=== PATIENT | female | born 1995 | race Two or more races ===

== ENCOUNTER 2023-04-16 19:20 | Emergency (ER) | payer OTHER ==
[~2023-04-16] VITALS: Ht 175.3 cm; Wt 53.5 kg
== END 2023-04-16 21:53 | disposition home or self-care (01) ==
LOC: ER 19:20
DX: U07.1 COVID-19 (principal)

== ENCOUNTER 2024-09-22 16:49 | Emergency (ER) | payer OTHER ==
[~2024-09-22] VITALS: Ht 162.6 cm; Wt 59.9 kg
== END 2024-09-22 20:23 | disposition home or self-care (01) ==
LOC: ER 16:52
DX: M54.2 Cervicalgia (principal); M43.6 Torticollis